=== PATIENT | female | born 1975 | race Caucasian/White ===

== ENCOUNTER 2017-04-15 15:00 | Emergency (ER) | payer MEDICAID ==
[~2017-04-15] VITALS: Ht 152.4 cm; Wt 67.0 kg
[2017-04-15 15:10] VITALS: BP 106/72; PULSE 98; RESP 15; TEMP 99.4; O2SAT 98
[2017-04-15] MEDS ORDERED: CLIN1CAP6 PO (16:23)
--- NOTE | 2017-04-15 16:23 | PD ---
HPI Chief Complaint: Skin Problem Time Seen by Provider: 16:00 Travel History International Travel<30 days: No Contact w/Intl Traveler<30days: No Traveled to known affect area: No History of Present Illness HPI 42-year-old female presents emergency department for evaluation of wounds to the right lower extremity. Patient reports roughly 3 weeks ago while walking her dog she fell which caused multiple abrasions to her right lower extremity. Since that time she reports the areas have been slow to heal. One wound in particular has some redness and drainage. She denies fever or chills. She reports mild pain at the site of the wound, nonradiating, no aggravating or alleviating factors, severity 2 out of 10. PFSH Past Medical History Medical History: Denies Significant Hx Asthma: Yes Respiratory: Yes (ASTHMA) Tetanus Vaccination: < 5 Years Influenza Vaccination: Yes ?: Not Past Surgical History Section: Yes Hysterectomy: Yes Social History Alcohol Use: No Tobacco Use: Yes (1/2 PPD) Substance Use: No Allergies-Medications (Allergen,Severity, Reaction): Coded Allergies: No Known Allergies (Unverified , 04/15/17) Reported Meds & Prescriptions Reported Meds & Active Scripts Active No Active Prescriptions or Reported Medications Review of Systems Except as stated in HPI: all other systems reviewed are Neg General / Constitutional: No: Fever Eyes: No: Visual changes HENT: No: Headaches Cardiovascular: No: Chest Pain or Discomfort Respiratory: No: Shortness of Breath Gastrointestinal: No: Abdominal Pain Genitourinary: No: Dysuria Physical Exam Narrative GENERAL: Well-nourished, well-developed patient. SKIN: Focused skin assessment warm/dry. Multiple healing abrasion to right anterior lower extremity. one abrasion measuring 2.5 x 3 cm has surrounding erythema and small amount of yellow exudate area and there is no induration. No lymphangitis. HEAD: Normocephalic. EYES: No scleral icterus. No injection or drainage. NECK: Supple, trachea midline. No JVD or lymphadenopathy. CARDIOVASCULAR: Regular rate and rhythm without murmurs, gallops, or rubs. RESPIRATORY: Breath sounds equal bilaterally. No accessory muscle use. GASTROINTESTINAL: Abdomen soft, non-tender, nondistended. MUSCULOSKELETAL: No cyanosis, or edema. Right lower extremity: Multiple healing abrasion to right anterior lower extremity. one abrasion measuring 2.5 x 3 cm has surrounding erythema and small amount of yellow exudate area and there is no induration. No lymphangitis. BACK: Nontender without obvious deformity. No CVA tenderness. Data Data Last Documented VS Vital Signs Date Time Temp Pulse Resp B/P Pulse Ox O2 Delivery O2 Flow Rate FiO2 04/15/17 15:10 99.4 98 15 106/72 98 MDM Medical Decision Making Medical Screen Exam Complete: Yes Emergency Medical Condition: Yes Differential Diagnosis Wound infection, abrasion, cellulitis, abscess Narrative Course 42-year-old female presents emergency department for evaluation of multiple abrasions to right lower extremity. Patient reports injury originally occurred approximate 3 weeks ago. She reports mild tenderness at the site of the abrasions with increasing redness and drainage. She is afebrile and nontoxic appearing. Her physical exam revealed mild wound infection with early cellulitis patient we put on clindamycin and instructed to follow-up with her doctor. Patient verbalizes understanding and agrees to plan. Diagnosis Primary Impression: Cellulitis Qualified Code: L03.115 - Cellulitis of right lower extremity Referrals: Primary Care Physician Additional Instructions: Take the antibiotics as prescribed. Follow-up with her primary care doctor for recheck of the wounds. Return to the emergency department if he developed new or worsening symptoms. Scripts Clindamycin 300 Mg [id number] Mg PO Q8HR #30 CAP Prov:Kim Shelby 04/15/17 Disposition: 01 DISCHARGE HOME Condition: Stable Kim Shelby Apr 15, 2017 16:23
== END 2017-04-15 16:45 | disposition home or self-care (01) ==
LOC: NEPK 15:00
DX: L03.115 Cellulitis of right lower limb (principal); J45.909 Unspecified asthma, uncomplicated; F17.200 Nicotine dependence, unspecified, uncomplicated
CPT/HCPCS: 99283